=== PATIENT | female | born 1960 | race Caucasian/White ===

== ENCOUNTER 2017-04-15 09:46 | Observation (INO) | payer OTHER ==
[2017-04-15 10:29] LABS: #Basophils 0.1 thou/uL (0.0-0.2); #Monocytes 0.4 thou/uL (0.11-0.59); #Neutrophils 3.4 thou/uL (1.40-6.50); %Basophils 1.4 % (0.0-1.0); %Eosinophils 0.2 % (0.0-10.0); %Lymphocytes 33.7 % (21.0-51.0); %Monocytes 6.3 % (0.0-10.0); Hematocrit 45.5 % (36.0-47.0); Mean Platelet Volume 7.9 fL (7.4-10.4); Red Blood Cell (RBC) Count 5.09 mill/uL (4.20-5.40); White Blood Cell (WBC) Count 5.9 thou/uL (4.8-10.8)
[2017-04-15 10:36] LABS: Lactic Acid - Sepsis 1.2 mmol/L (0.5-2.2)
[2017-04-15 10:43] LABS: ALT (SGPT) 23 U/L (8-55); AST (SGOT) 25 U/L (5-34); Alkaline Phosphatase 84 U/L (40-150); Anion Gap 15 mmol/L (10-20); BUN (Urea Nitrogen) 11 mg/dL (9.8-20.1); Bilirubin, Total 0.6 mg/dL (0.2-1.2); CK (CPK) 119 U/L (29-168); Calc. Creatinine Clearance 0 mL/min (70-130); Calcium 8.9 mg/dL (7.8-10.44); Carbon Dioxide 25 mmol/L (22-29); Chloride 101 mmol/L (98-107); Estimated GFR-MDRD 67; Globulin 2.7 g/dL (2.4-3.5); Lipase 18 U/L (8-78); Protein, Total 6.8 g/dL (6.0-8.3)
[2017-04-15 10:46] LABS: Troponin I Less than 0.010 ng/mL (< 0.028)
--- NOTE | 2017-04-15 11:07 | RAD ---
CHEST ONE VIEW HISTORY: Cough. COMPARISON: None. FINDINGS: Lungs are clear. No pneumothorax or effusion. Cardiac silhouette and mediastinal contours are withi n normal limits. IMPRESSION: No acute intrathoracic abnormality. POS: [facility]
--- NOTE | 2017-04-15 12:03 | CT ---
CT ANGIO CHEST WITH CONTRAST: Date: 04/15/17 HISTORY: Cough, pain, single episode. COMPARISON: Chest 1 view same date. FINDINGS: CT angiogram chest performed after the intravenous administration of contrast. 3D rendering provided. No proximal segmental pulmonary arterial filling defect. No aneurysmal dilatation of the aorta. Calci fications present in the left lobe of the thyroid. Hemangioma present hepatic segment 2. There is a cyst in the left kidney. Multiple hypodensities of t he pancreatic head. Moderate to severe emphysematous changes. There are some scattered areas of pleural thickening and sc arring. No suspicious mass. There are some old right posterior 4th and 5th rib fractures. No acute rib fracture. IMPRESSION: 1. No segmental pulmonary arterial filling defect. 2. Moderate to severe emphysema. 3. Multiple hypodensities of the pancreatic head, which can be seen with branch-type IPMN. Follow-up MRI of the abdomen, pancreatic protocol, in 3-6 months recommended. This is incompletely evaluated. POS: [facility]
[2017-04-15 12:52] LABS: Bilirubin Negative (Negative); Blood, Urine Small (Negative); Glucose, Urine (Dipstick) Negative (Negative); Ketone, Urine Negative (Negative); Nitrite Positive (Negative); Protein, Urine (Dipstick) Negative (Neg-Trace); Urobilinogen 0.2 mg/dL (0.2-1.0)
[2017-04-15 13:01] LABS: Bacteria/HPF 3+ HPF (None Seen); RBC/HPF 0-3 HPF (0-3); WBC/HPF 0-3 HPF (0-3)
[2017-04-15 13:03] LABS: Amphetamine Not Detected (NotDetected); Methadone Not Detected (NotDetected); Methamphetamine Not Detected (NotDetected)
[2017-04-15 13:57] LABS: Troponin I Less than 0.010 ng/mL (< 0.028)
--- NOTE | 2017-04-15 16:11 | PDOC.EVN ---
Attending Addendum - Attending Addendum I personally evaluated the patient and discussed the management with Dr. Armendariz/ Edith. I agree with the History, Examination, Assessment and Plan documented in her H& P with any addition or exceptions noted below. Patient with several days of fevers, chills, malaise, and body aches reporting syncope type symptoms over the last 2 days. Reports pre-syncope type symptoms with subsequent loss of consciousness x 3 over the last 2 days. Reports symptoms began after taking OTC flu medication. She denies positional nature of symptoms, and denies history of similar symptoms. She was seen in ER with normal vitals, but was Flu positive. She feels improved and with appetite after 1 L NS bolus. She clinically looks well on exam, other than some costochondral chest pain. She will be admitted to observation, and will monitor heart rhythm overnight to ensure no disturbances, though her syncope is likely related to hypovolemia and acute illness. Ambulate as tolerated. Symptomatic support will be provided for her influenza URI. Doubt that Tamiflu will lead to any improvement at this time as symptoms have been present for at least 5 days. Continue IV fluid hydration, consider checking orthostatic vitals though likely will be skewed as she has received 1 L already. Possible discharge home tomorrow if doing well.
[2017-04-15 16:23] VITALS: BMI 21.9
[2017-04-15] MEDS ORDERED: Acetaminophen 325 MG TAB PO PRN (17:29)
[2017-04-15] MEDS ORDERED: Ondansetron ODT 4 MG TAB PO PRN (17:29)
[2017-04-15 17:37] LABS: Troponin I Less than 0.010 ng/mL (< 0.028)
[2017-04-15] MEDS: Oseltamivir 75 MG CAP PO SCH (18:41)
[2017-04-15] MEDS: guaiFENesin ER 600 MG TAB PO SCH (21:21)
[2017-04-15] MEDS: Benzonatate 100 MG CAP PO PRN (21:21)
[2017-04-15] MEDS: Sodium Chloride 0.9% 1,000 ML IV SCH (21:22)
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
--- NOTE | 2017-04-16 07:10 | PDOC.FM ---
- Subjective Subjective: Doing well today, tele monitoring found NSR overnight. Patient has not had any syncopal episode and still tolerating PO intake. - Objective MAR Reviewed: Yes Vital Signs & Weight: Vital Signs (12 hours) Temp Pulse Resp BP BP BP Pulse Ox 04/16/17 03:40 99.8 F H 85 20 95/53 L 94 L 04/15/17 19:35 96/51 L 99/52 L 100/49 L 04/15/17 19:26 99.3 F 89 20 04/15/17 19:19 99.3 F 89 20 106/56 L 95 Weight Weight 56.245 kg I&O: 04/15/17 04/16/17 04/17/17 06:59 06:59 06:59 Intake Total 1777 Balance 1777 Result Diagrams: 04/15/17 10:20 04/15/17 10:20 <Ubaldo Sharma M - Last Filed: 04/16/17 10:58> - Objective Vital Signs & Weight: Vital Signs (12 hours) Temp Pulse Resp BP BP Pulse Ox 04/16/17 11:17 98.2 F 76 18 100/58 L 96 04/16/17 08:00 98.6 F 87 18 04/16/17 07:25 98.6 F 87 18 114/53 L 95 04/16/17 03:40 99.8 F H 85 20 95/53 L 94 L Weight Weight 56.245 kg I&O: 04/15/17 04/16/17 04/17/17 06:59 06:59 06:59 Intake Total 1777 155 Balance 1777 155 Result Diagrams: 04/15/17 10:20 04/15/17 10:20 <Sid Nieves A - Last Filed: 04/16/17 12:18> Phys Exam - Physical Examination Constitutional: NAD HEENT: moist MMs Neck: no nodes, supple Respiratory: no wheezing, no rales, no rhonchi, clear to auscultation bilateral Cardiovascular: RRR, no significant murmur, no rub Gastrointestinal: soft, non-tender, no distention, positive bowel sounds Musculoskeletal: no edema Neurological: non-focal, moves all 4 limbs Lymphatic: no nodes Psychiatric: normal affect Skin: no rash <Ubaldo Sharma M - Last Filed: 04/16/17 10:58> Dx/Plan (1) Influenza A Code(s): J10.1 - FLU DUE TO OTH IDENT INFLUENZA VIRUS W OTH RESP MANIFEST Status: Acute Plan: This is now day 4 of influenza. While tamiflu is unlikely to alter course greatly, patient did desire tamiflu treatment at this time, understanding risk and benefit. (2) Syncope Code(s): R55 - SYNCOPE AND COLLAPSE Status: Acute Plan: Orthostatic was negative but patient had received 1.5 L bolus prior to test, possibly skewing test. No obvious sign of dysrthmia overnight. Due to syncope happening only while she was ill with influenza with poor intake, likely from poor intake and illness. Advised patient if this recurs, she shoiuld follow up with her PCP. (3) Asymptomatic bacteriuria Code(s): R82.71 - BACTERIURIA Status: Acute Plan: Patient was asymptomatic. Will not treat at this time. Educate ptient about symptomatic bacturia before discharge. (4) Marijuana abuse Code(s): F12.10 - CANNABIS ABUSE, UNCOMPLICATED Status: Acute Plan: 04/16: Positive drug screen. Will advise cessation to patient. <Ubaldo Sharma - Last Filed: 04/16/17 10:58> Attending Addendum - Attending Addendum I personally evaluated the patient and discussed the management with Dr. Sharma. I agree with the History, Examination, Assessment and Plan documented above with any addition or exceptions noted below. Stable for discharge. <Sid Nieves - Last Filed: 04/16/17 12:18>
[2017-04-16] MEDS: guaiFENesin ER 600 MG TAB PO SCH (07:28)
[2017-04-16] MEDS: Sodium Chloride 0.9% 1,000 ML IV SCH (07:28)
[2017-04-16] MEDS: Oseltamivir 75 MG CAP PO SCH (09:57)
[2017-04-16] MEDS: Benzonatate 100 MG CAP PO PRN (09:57)
[2017-04-16 11:46] VITALS: BP 100/58; TEMP 98.2
--- NOTE | 2017-04-17 13:54 | DIS-2 ---
DATE OF ADMISSION: 04/15/2017 DATE OF DISCHARGE: 04/16/2017 RESIDENT: Ubaldo Sharma M.D. ADMITTING ATTENDING: Magdi Horvath M.D. DISCHARGE ATTENDING: Sid Nieves M.D. CONSULTS: None. PROCEDURES: 1. Chest x-ray. Impression: Lungs are clear, no pneumothorax or effusion. Cardiac silhouette and mediastinal contours are within normal limits. Impression: No acute intrathoracic abnormality. 2. Chest CTA. Impression: No segmental pulmonary arterial filling defects, moderate to severe emph ysema, multiple hypodensity of the pancreatic head which could be seen branch type IPMN. Follow up M RI of the abdomen, pancreatic protocol in 3-6 months is recommended. This is incompletely evaluated. PRIMARY DIAGNOSES: 1. Syncope likely secondary to dehydration. 2. Influenza A. SECONDARY DIAGNOSES: 1. Acute kidney injury. 2. History of polysubstance abuse. 3. Asymptomatic bacteriuria. DISCHARGE MEDICATIONS: 1. Tessalon Perles 100 mg p.o. every 4 hours as needed for cough. 2. Tamiflu 75 mg p.o. b.i.d. 3. [place] 1 tablet p.o. every 8 hours as needed. DISCONTINUED MEDICATIONS: None. HISTORY OF PRESENT ILLNESS AND HOSPITAL COURSE: This is a 57-year-old female with past medical histo ry of cardiac arrest in 2011, who presented because of an unwitnessed syncopal event. She stated jamar t she was standing when she had these episodes and has been going on for the last 2 days. Two days p rior to these episodes starting, she had been having cough, congestion, rhinorrhea, sneezing, headach e, and nausea. She stated that she has also been taking Tylenol Cold and Flu as well. She endorses having body aches and chills. At the ER, she was found to have vital signs within normal limits with a nonpertinent exam except for what was stated above; however, she did test flu positive. UDS was p ositive for cannabinoids. She was then admitted to observation floor for overnight monitor technician ing. Overnight, she did not have any arrhythmia and no further syncopal episode. She was treated fo r influenza with Tamiflu and normal saline infusion for her dehydration and acute kidney injury, whic h was found incidentally on routine labs. Because of her history, it was felt that her symptom was m ost likely due to dehydration secondary to influenza. She was discharged in good condition with inst ruction for followup if her symptoms worsen. She expressed understanding of this. DISPOSITION: Stable. DISCHARGE INSTRUCTIONS: 1. Location: To home. 2. Diet: As tolerated. 3. Activity: As tolerated. 4. Followup: Follow up with [facility] within 1-2 weeks.
== END 2017-04-16 12:10 | disposition home or self-care (01) ==
LOC: SCSER 09:46 → 2SW 11:22
PROVIDERS: ADMIT Student in an Organized Health Care Education/Training Program; ATTEND Student in an Organized Health Care Education/Training Program
DX: R55 Syncope and collapse (principal); N17.9 Acute kidney failure, unspecified; J10.1 Influenza due to other identified influenza virus with other respiratory manifestations; R82.71 Bacteriuria; F17.210 Nicotine dependence, cigarettes, uncomplicated; F15.11 Other stimulant abuse, in remission; F14.11 Cocaine abuse, in remission; F12.10 Cannabis abuse, uncomplicated; F43.10 Post-traumatic stress disorder, unspecified; F32.9 Major depressive disorder, single episode, unspecified; Z90.710 Acquired absence of both cervix and uterus; Z98.890 Other specified postprocedural states; Z86.74 Personal history of sudden cardiac arrest; Z85.42 Personal history of malignant neoplasm of other parts of uterus
CPT/HCPCS: 36415; 71010; 71275; 80053; 80306; 81003; 81015; 82553; 83605; 83690; 84484; 85025; 85379; 93005; 96360; 96361; G0378

== ENCOUNTER 2018-05-18 07:40 | Emergency (ER) | payer OTHER ==
[2018-05-18] MEDS ORDERED: predniSONE 20 MG TAB ONE (08:06)
[2018-05-18 08:26] LABS: #Basophils 0.1 thou/uL (0.0-0.2); #Eosinphils 0.2 thou/uL (0.0-0.7); #Lymphocytes 2.4 thou/uL (1.20-3.40); #Monocytes 0.7 thou/uL (0.11-0.59); #Neutrophils 6.2 thou/uL (1.40-6.50); %Basophils 1.1 % (0.0-1.0); %Eosinophils 1.9 % (0.0-10.0); %Lymphocytes 25.3 % (21.0-51.0); %Monocytes 7.5 % (0.0-10.0); %Neutrophils 64.1 % (42.0-75.0); Hemoglobin 16.6 g/dL (12.0-16.0); Mean Corpuscular HGB CONC 33.1 g/dL (32.0-36.0); Mean Corpuscular Volume 90.6 fL (78.0-98.0); Platelet Count 253 thou/uL (130-400); RBC Distribution Width 11.9 % (11.5-14.5); Red Blood Cell (RBC) Count 5.53 mill/uL (4.20-5.40); White Blood Cell (WBC) Count 9.6 thou/uL (4.8-10.8)
[2018-05-18] MEDS ORDERED: Benzonatate 100 MG CAP ONE (08:28)
[2018-05-18 08:35] LABS: ALT (SGPT) 20 U/L (8-55); AST (SGOT) 22 U/L (5-34); Albumin 4.6 g/dL (3.5-5.0); Alkaline Phosphatase 95 U/L (40-150); Anion Gap 16 mmol/L (10-20); BUN (Urea Nitrogen) 12 mg/dL (9.8-20.1); Calc. Creatinine Clearance 0 mL/min (70-130); Calcium 9.8 mg/dL (7.8-10.44); Carbon Dioxide 25 mmol/L (22-29); Chloride 103 mmol/L (98-107); Estimated GFR-MDRD 67; Globulin 2.8 g/dL (2.4-3.5); Glucose 108 mg/dL (70-105); Potassium 3.6 mmol/L (3.5-5.1); Protein, Total 7.4 g/dL (6.0-8.3); Sodium 140 mmol/L (136-145)
--- NOTE | 2018-05-18 09:04 | RAD ---
2 VIEWS CHEST: Date: 05/18/18 PROVIDED CLINICAL HISTORY: Chest pain. FINDINGS: Comparison with 04/15/17. Cardiac and mediastinal silhouette is unchanged in appearance. Chronic obstructive changes are redemo nstrated. No focal consolidation, pleural fluid, or pneumothorax apparent. IMPRESSION: Chronic obstructive disease without evidence for an acute cardiopulmonary process. POS: [facility]
== END 2018-05-18 08:54 | disposition home or self-care (01) ==
LOC: SCSER 07:40
DX: J20.9 Acute bronchitis, unspecified (principal); F32.9 Major depressive disorder, single episode, unspecified; F17.210 Nicotine dependence, cigarettes, uncomplicated; F43.10 Post-traumatic stress disorder, unspecified; Z79.51 Long term (current) use of inhaled steroids
CPT/HCPCS: 36415; 71046; 80053; 84484; 85025; 87804; 93005; 94640; J7506; J7620

== ENCOUNTER 2018-07-07 16:44 | Emergency (ER) | payer OTHER ==
[2018-07-07] MEDS ORDERED: predniSONE 20 MG TAB ONE (17:06)
[2018-07-07 17:26] LABS: #Basophils 0.1 thou/uL (0.0-0.2); #Eosinphils 0.2 thou/uL (0.0-0.7); #Lymphocytes 3.8 thou/uL (1.20-3.40); #Monocytes 0.5 thou/uL (0.11-0.59); #Neutrophils 4.6 thou/uL (1.40-6.50); %Basophils 1.4 % (0.0-1.0); %Eosinophils 2.7 % (0.0-10.0); %Lymphocytes 41.1 % (21.0-51.0); %Monocytes 5.2 % (0.0-10.0); %Neutrophils 49.7 % (42.0-75.0); Hemoglobin 15.5 g/dL (12.0-16.0); Mean Corpuscular Hemoglobin 30.3 pg (27.0-31.0); Mean Corpuscular Volume 89.3 fL (78.0-98.0); Mean Platelet Volume 7.6 fL (7.4-10.4); Platelet Count 303 thou/uL (130-400); RBC Distribution Width 11.8 % (11.5-14.5); Red Blood Cell (RBC) Count 5.12 mill/uL (4.20-5.40); White Blood Cell (WBC) Count 9.3 thou/uL (4.8-10.8)
[2018-07-07 17:37] LABS: Anion Gap 13 mmol/L (10-20); BUN (Urea Nitrogen) 14 mg/dL (9.8-20.1); Calc. Creatinine Clearance 0 mL/min (70-130); Carbon Dioxide 29 mmol/L (22-29); Chloride 104 mmol/L (98-107); Estimated GFR-MDRD 67; Glucose 93 mg/dL (70-105); Potassium 4.1 mmol/L (3.5-5.1); Sodium 142 mmol/L (136-145)
--- NOTE | 2018-07-07 18:43 | RAD ---
PA AND LATERAL CHEST X-RAY: 07/07/18 HISTORY: Cough, productive sputum. COMPARISON: 05/18/18. FINDINGS: The cardiac silhouette and pulmonary vasculature are within normal limits. Again noted are lucencies within the upper lung zones related to emphysematous changes. No consolidation or pleural fluid is se en. There is mild flattening of the hemidiaphragms with hyperexpansion of the lungs. There has been n o interval change from the prior exam. IMPRESSION: 1. No acute cardiopulmonary process. 2. Findings suggestive of COPD. POS: [facility]
== END 2018-07-07 18:55 | disposition home or self-care (01) ==
LOC: SCSER 16:44
DX: J44.1 Chronic obstructive pulmonary disease with (acute) exacerbation (principal); F43.10 Post-traumatic stress disorder, unspecified; F32.9 Major depressive disorder, single episode, unspecified; F17.210 Nicotine dependence, cigarettes, uncomplicated; Z86.74 Personal history of sudden cardiac arrest; Z79.51 Long term (current) use of inhaled steroids
CPT/HCPCS: 71046; 80048; 85025; 93005; 94760; J7620

== ENCOUNTER 2022-12-12 10:05 | Day surgery (SDC) | payer OTHER ==
[~2022-12-12 10:05] MED LIST: Zoledronic Acid/Mannitol&Water 5 MG in Premix Bag 1 BAG IVPB SCH
[2022-12-12 10:37] VITALS: BP 117/58; TEMP 98.1
== END 2022-12-12 11:47 | disposition home or self-care (01) ==
LOC: ONC/OP 10:05
PROVIDERS: ATTEND Student in an Organized Health Care Education/Training Program
DX: M81.0 Age-related osteoporosis without current pathological fracture (principal)
CPT/HCPCS: 96365; J3489

== ENCOUNTER 2023-10-29 15:24 | Outpatient (CLI) | payer OTHER | END 2023-10-29 15:25 | disposition home or self-care (01) | LOC: BICRAD 15:24 | PROVIDERS: ATTEND Registered Nurse | DX: M16.12 Unilateral primary osteoarthritis, left hip (principal) ==

== ENCOUNTER 2023-12-17 10:37 | Day surgery (SDC) | payer OTHER ==
[~2023-12-17 10:37] MED LIST changes: +Zoledronic Acid/Mannitol&Water 5 MG in Premix 1 BAG IVPB SCH; -Zoledronic Acid/Mannitol&Water 5 MG in Premix Bag 1 BAG IVPB SCH
[2023-12-17] MEDS: Zoledronic Acid/Mannitol&Water 5 MG in Premix 1 BAG IVPB SCH (11:11)
[2023-12-17 11:52] VITALS: BP 112/54; TEMP 98.1
== END 2023-12-17 12:06 | disposition home or self-care (01) ==
LOC: ONC/OP 10:37
PROVIDERS: ATTEND Family Medicine
DX: M81.0 Age-related osteoporosis without current pathological fracture (principal)
CPT/HCPCS: 96365; J3489

== ENCOUNTER 2024-12-15 10:45 | Day surgery (SDC) | payer OTHER ==
[2024-12-15] MEDS: Zoledronic Acid/Mannitol&Water 5 MG in Premix 1 BAG IVPB SCH (11:51)
[2024-12-15 12:24] VITALS: BP 128/57; TEMP 98.2
== END 2024-12-15 12:23 | disposition home or self-care (01) ==
LOC: ONC/OP 10:45
PROVIDERS: ATTEND Family Medicine
DX: M81.0 Age-related osteoporosis without current pathological fracture (principal)
CPT/HCPCS: 96365; J3489